=== PATIENT | female | born 1945 | race Caucasian/White ===

== ENCOUNTER 2017-04-18 14:16 | Emergency (ER) | payer MEDICARE, OTHER ==
[~2017-04-18] VITALS: Ht 157.5 cm; Wt 57.2 kg
--- NOTE | 2017-04-18 14:43 | NUR ---
PT PRESENTED TO THE ER WITH A C/O RT HIP PAIN THAT RADIATES DOWN THE RT LEG TO THE TOES. PT WAS TRIAGED AND TAKEN TO BED #13 VIA WC. PT IS AA&O X4. PT STATED THAT SHE DOES LAND PT ON AND OFF. PT HAS A WALKER AT HOME AND USES IT OCCASIONALLY.
[2017-04-18] MEDS ORDERED: HYDROCODONE/APAP 5/325MG 1 EACH TABLET ONE (15:14)
[2017-04-18 15:28] VITALS: BP 128/87
--- NOTE | 2017-04-18 15:29 | NUR ---
Patient discharged to home in stable condition. Written and verbal after care instructions given. Patient verbalizes understanding of instruction AND RX. PT REC'D MEDICATION ORDERED. PT WALKED PART OF THE WAY TO THE LOBBY BUT WENT BY WC THE REST OF THE WAY. PT IS CALLING A TAXI TO TAKE HER HOME. VSS
[2017-04-18] MEDS ORDERED: HYDROCODONE/APAP 5/325MG 1 EACH TABLET PO ONE (15:30)
== END 2017-04-18 15:29 | disposition home or self-care (01) ==
LOC: ER 14:17
DX: M54.41 Lumbago with sciatica, right side (principal); M25.551 Pain in right hip; G89.29 Other chronic pain; I10 Essential (primary) hypertension; B19.20 Unspecified viral hepatitis C without hepatic coma; E11.9 Type 2 diabetes mellitus without complications
CPT/HCPCS: 99283; A4606

== ENCOUNTER 2019-03-13 12:48 | Emergency (ER) | payer MEDICARE, OTHER ==
[~2019-03-13] VITALS: Ht 152.4 cm; Wt 48.5 kg
--- NOTE | 2019-03-13 13:51 | NUR ---
PT PRESENTED TO THE ER WITH A C/O ABD PAIN, CONSTIPATION, AND RT HIP PAIN. PT WAS TRIAGED AND TAKEN TO ER12 VIA WC.
[2019-03-13 14:27] LABS: BASOPHILS % (AUTO) 0.8 % (0.0-2.0); EOSINOPHILS % (AUTO) 3.5 % (0.0-6.0); HEMATOCRIT 23 % (33-45); HEMOGLOBIN 7.2 g/dL (11.5-14.8); LYMPHOCYTES # (AUTO) 1.2 /CMM (0.8-4.8); LYMPHOCYTES % (AUTO) 29.5 % (20.0-44.0); MEAN CORPUSCULAR HGB CONC 32 g/dl (31.0-36.0); MEAN CORPUSCULAR VOLUME 84 fL (82-100); MONOCYTES # (AUTO) 0.3 /CMM (0.1-1.30); MONOCYTES % (AUTO) 6.9 % (2.0-12.0); NEUTROPHILS # (AUTO) 2.4 /CMM (1.8-8.9); NEUTROPHILS % (AUTO) 59.3 % (43.0-81.0); PLATELET COUNT (AUTO) 180 /CMM (150-450); RED BLOOD CELL COUNT(AUTO) 2.73 MIL/uL (4.0-5.2)
[2019-03-13] MEDS ORDERED: PANTOPRAZOLE 40 MG VIAL IV ONE (14:30)
[2019-03-13 14:46] LABS: ALANINE AMINOTRANSFERASE 16 U/L (12-78); ALBUMIN 2.5 g/dL (3.4-5.0); ALKALINE PHOSPHATASE 159 U/L (46-116); ASPARTATE AMINOTRANSFERASE 21 U/L (15-37); BILIRUBIN,DIRECT 0.3 mg/dL (0.0-0.2); BILIRUBIN,TOTAL 0.5 mg/dL (0.2-1.0); CALCIUM, SERUM 8.7 mg/dL (8.5-10.1); CARBON DIOXIDE 31 mmol/L (21-32); CHLORIDE 95 mmol/L (98-107); CREATININE 1.6 mg/dL (0.6-1.3); LIPASE 306 U/L (73-393); POTASSIUM 4.1 mmol/L (3.5-5.1); SODIUM SERUM 131 mmol/L (136-145); TOTAL PROTEIN, SERUM 6.6 g/dL (6.4-8.2); UREA NITROGEN, BLOOD 19 mg/dL (7-18)
[2019-03-13] MEDS ORDERED: PANTOPRAZOLE 40 MG VIAL ONE (14:50)
[2019-03-13 14:51] LABS: GLUCOSE 516 mg/dL (74-106)
[2019-03-13] MEDS ORDERED: LOSA25TA27 PO (14:57)
[2019-03-13] MEDS ORDERED: ZOLP5TAB8 PO (14:57)
[2019-03-13] MEDS ORDERED: INSU100I14 SQ (14:57)
[2019-03-13] MEDS ORDERED: ACET1TAB23 PO (14:57)
[2019-03-13] MEDS ORDERED: PANT40TA4 PO (14:57)
[2019-03-13] MEDS ORDERED: AMLO10TA7 PO (14:57)
[2019-03-13] MEDS ORDERED: SITA50TA PO (14:57)
[2019-03-13] MEDS ORDERED: BLOO-668 IN (14:57)
[2019-03-13] MEDS ORDERED: FURO20TA4 PO (14:57)
[2019-03-13] MEDS ORDERED: IV NS 0.9% 250 ML IV ONE (14:59)
[2019-03-13] MEDS ORDERED: CT SWABBABLE VALVE TRANS SET 1 EA INFUS.SET MC ONE (14:59)
[2019-03-13] MEDS ORDERED: IOHEXOL-300 100 ML VIAL IV ONE (14:59)
[2019-03-13 15:07] LABS: ABG OXYGEN SATURATION 95.3 % (92.0-98.5); ABG PCO2 49.9 mmHg (35.0-45.0); ABG PH 7.415 (7.350-7.450); ABG PO2 86.6 mmHg (75.0-100.0); AaDO2 3.4 mmHg; COHb 0.6 % (0.5-1.5); MetHb 0.9 % (0.0-1.5); O2Hb 93.9 % (94.0-97.0); SITE, ABG Right Radial; VENT MODE, BG ROOM AIR
[2019-03-13] MEDS ORDERED: INSULIN REGULAR, HUMAN 100 UNIT/ML 10 ML VIAL SQ ONE (15:30)
[2019-03-13] MEDS ORDERED: INSULIN REGULAR, HUMAN 100 UNIT/ML 10 ML VIAL ONE (15:55)
--- NOTE | 2019-03-13 15:55 | NUR ---
PAGED DR. MORRIS PERSONAL LINE, NO ANSWER.
--- NOTE | 2019-03-13 16:08 | NUR ---
SECOND ATTEMPT FOR [facility], NO ANSWER. LEFT CALL BACK NUMBER.
--- NOTE | 2019-03-13 16:30 | NUR ---
PAGED [facility].
--- NOTE | 2019-03-13 16:40 | NUR ---
ORDERED FOOD TRAY DIABETIC DIET.
--- NOTE | 2019-03-13 16:49 | NUR ---
CALLED NURSING SUP FOR TELE BED.
--- NOTE | 2019-03-13 16:57 | NUR ---
NURSING SUP GAVE TELE BED 312-2.
--- NOTE | 2019-03-13 17:35 | NUR ---
Patient does not wish to proceed with medical care recommended by Dr. KEYES. Patient given information related to possible complications, up to and including , which could occur as a result of leaving the hospital at this time. Patient verbalizes understanding of risks involved due to leaving against medical advice. Patient has signed AMA form. PT REC'D AN RX FOR [place]CO FOR HER HIP PAIN. PT LEFT VIA WC. PT'S SON IS DRIVING PT HOME. VSS
[2019-03-13 18:05] VITALS: BP 137/67
== END 2019-03-13 18:06 | disposition left against medical advice (07) ==
LOC: ER 12:49
DX: D64.9 Anemia, unspecified (principal); I10 Essential (primary) hypertension; E11.9 Type 2 diabetes mellitus without complications; Z86.19 Personal history of other infectious and parasitic diseases; Z90.49 Acquired absence of other specified parts of digestive tract; Z91.048 Other nonmedicinal substance allergy status; Z79.899 Other long term (current) drug therapy; Z79.4 Long term (current) use of insulin
CPT/HCPCS: 36415; 36600 ×2; 71045; 74177; 80048; 80076; 82010; 82803; 82962 ×2; 83690; 84484; 85025; 85240; 85730; 86850; 93005; 96372; 96374; 99291; C9113; J1815; J7050; Q9967